=== PATIENT | male | born 1940 | race African-American/Black ===

== ENCOUNTER 2017-02-03 10:59 | Outpatient (CLI) | payer MEDICARE ==
[2017-02-03 11:54] LABS: ALT (SGPT) 9 U/L (0-55); AST (SGOT) 12 U/L (5-34); Alkaline Phosphatase 68 U/L (40-150); Anion Gap 12 mmol/L (10-20); BUN (Urea Nitrogen) 12 mg/dL (8.4-25.7); Bilirubin, Total 0.3 mg/dL (0.2-1.2); Calc. Creatinine Clearance 0 mL/min (70-130); Calcium 9.5 mg/dL (7.8-10.44); Carbon Dioxide 27 mmol/L (23-31); Cardiac Risk 2.2 (Less than 4.5); Chloride 107 mmol/L (98-107); Cholesterol 94 mg/dL (< 200 Desired); Estimated GFR-MDRD 74; Globulin 2.4 g/dL (2.4-3.5); Glucose 100 mg/dL (83-110); HDL Cholesterol 42 mg/dL (>60 Neg Risk); LDL Cholesterol, Calculated 40 mg/dL; Protein, Total 6.4 g/dL (5.8-8.1); Sodium 142 mmol/L (136-145); Triglycerides 60 mg/dL (Less than 150)
[2017-02-03 12:17] LABS: Free T4 (Free Thyroxine) 1.18 ng/dL (0.70-1.48); PSA-Asymptomatic (SCREENING) 0.02 ng/mL (0-4.0); Thyroid Stimulating Hormone 0.6253 uIU/mL (0.35-4.94)
[2017-02-03 12:26] LABS: #Basophils 0.1 thou/uL (0.0-0.2); #Eosinphils 0.5 thou/uL (0.0-0.7); #Monocytes 0.5 thou/uL (0.11-0.59); #Neutrophils 3.6 thou/uL (1.40-6.50); %Basophils 1.1 % (0.0-1.0); %Eosinophils 7.5 % (0.0-10.0); %Lymphocytes 29.4 % (21.0-51.0); %Monocytes 7.6 % (0.0-10.0); %Neutrophils 54.5 % (42.0-75.0); Hemoglobin 12.7 g/dL (14.0-18.0); Mean Corpuscular HGB CONC 34.2 g/dL (32.0-36.0); Mean Corpuscular Hemoglobin 30.1 pg (27.0-31.0); Mean Corpuscular Volume 87.9 fl (80.0-94.0); Mean Platelet Volume 7.4 fL (7.4-10.4); Platelet Count 246 thou/uL (130-400); RBC Distribution Width 12.7 % (11.5-14.5); Red Blood Cell (RBC) Count 4.23 mill/uL (4.70-6.10); White Blood Cell (WBC) Count 6.7 thou/uL (4.8-10.8)
[2017-02-03 12:38] LABS: Hemoglobin A1c 6.9 % (4.0-6.0)
[2017-02-03 17:17] LABS: Iron 51 ug/dL (65-175)
== END 2017-02-03 11:00 | disposition home or self-care (01) ==
LOC: BURLAB 10:59
PROVIDERS: ATTEND Internal Medicine
DX: Z12.5 Encounter for screening for malignant neoplasm of prostate (principal); E78.5 Hyperlipidemia, unspecified; E11.9 Type 2 diabetes mellitus without complications; I10 Essential (primary) hypertension
CPT/HCPCS: 36415; 80053; 80061; 83036; 83540; 84439; 84443; 85025; G0103

== ENCOUNTER 2017-05-16 09:30 | Outpatient (CLI) | payer MEDICARE ==
[2017-05-16 10:19] LABS: #Basophils 0.1 thou/uL (0.0-0.2); #Eosinphils 0.1 thou/uL (0.0-0.7); #Lymphocytes 1.7 thou/uL (1.20-3.40); #Monocytes 0.6 thou/uL (0.11-0.59); #Neutrophils 4.1 thou/uL (1.40-6.50); %Basophils 1.2 % (0.0-1.0); %Eosinophils 1.9 % (0.0-10.0); %Lymphocytes 25.3 % (21.0-51.0); %Neutrophils 62.5 % (42.0-75.0); Hemoglobin 13.2 g/dL (14.0-18.0); Mean Corpuscular HGB CONC 33.8 g/dL (32.0-36.0); Mean Corpuscular Hemoglobin 29.2 pg (27.0-31.0); Mean Corpuscular Volume 86.4 fl (80.0-94.0); Mean Platelet Volume 7.5 fL (7.4-10.4); Platelet Count 174 thou/uL (130-400); RBC Distribution Width 13.6 % (11.5-14.5); Red Blood Cell (RBC) Count 4.53 mill/uL (4.70-6.10); White Blood Cell (WBC) Count 6.6 thou/uL (4.8-10.8)
[2017-05-16 10:22] LABS: ALT (SGPT) 13 U/L (8-55); AST (SGOT) 14 U/L (5-34); Albumin 3.9 g/dL (3.4-4.8); Alkaline Phosphatase 63 U/L (40-150); Anion Gap 12 mmol/L (10-20); BUN (Urea Nitrogen) 22 mg/dL (8.4-25.7); Bilirubin, Total 0.3 mg/dL (0.2-1.2); Calc. Creatinine Clearance 0 mL/min (70-130); Calcium 9.6 mg/dL (7.8-10.44); Carbon Dioxide 27 mmol/L (23-31); Cardiac Risk 2.8 (Less than 4.5); Chloride 107 mmol/L (98-107); Cholesterol 112 mg/dl (< 200 Desired); Estimated GFR-MDRD 71; Globulin 2.8 g/dL (2.4-3.5); Glucose 90 mg/dL (83-110); HDL Cholesterol 40 mg/dL (>60 Neg Risk); LDL Cholesterol, Calculated 52 mg/dL; Potassium 4.1 mmol/L (3.5-5.1); Protein, Total 6.7 g/dL (5.8-8.1); Sodium 142 mmol/L (136-145); Triglycerides 100 mg/dL (Less than 150)
[2017-05-16 10:43] LABS: Hemoglobin A1c 6.9 % (4.0-6.0)
[2017-05-16 18:02] LABS: Iron 53 ug/dL (65-175)
== END 2017-05-16 09:31 | disposition home or self-care (01) ==
LOC: BURLAB 09:30
PROVIDERS: ATTEND Internal Medicine
DX: E78.5 Hyperlipidemia, unspecified (principal); E11.9 Type 2 diabetes mellitus without complications
CPT/HCPCS: 36415; 80053; 80061; 82728; 83036; 83540; 85025

== ENCOUNTER 2018-02-06 15:53 | Emergency (ER) | payer MEDICARE ==
[2018-02-06] MEDS ORDERED: AMOXicillin 250 MG CAP ONE (16:19)
--- NOTE | 2018-02-06 20:44 | RAD ---
PORTABLE CHEST: 02/06/18 An AP portable film at 1550 shows the heart to be upper limits of normal in size. There are no conges tive changes or pleural effusions. There is no sign of pneumonia currently. The lungs are clear. The mediastinum showed no acute change. Slight deviation of the trachea to the right appears to be due to the mildly dilated aortic arch. IMPRESSION: Borderline heart size but no acute findings. POS: HOME
== END 2018-02-06 16:25 | disposition home or self-care (01) ==
LOC: BURERS 15:53
DX: J20.9 Acute bronchitis, unspecified (principal); I10 Essential (primary) hypertension; F17.210 Nicotine dependence, cigarettes, uncomplicated; Z79.899 Other long term (current) drug therapy; Z79.4 Long term (current) use of insulin
CPT/HCPCS: 71045

== ENCOUNTER 2018-11-16 11:43 | Emergency (ER) | payer MEDICARE ==
[2018-11-16 12:31] LABS: #Basophils 0.1 thou/uL (0.0-0.2); #Eosinphils 0.2 thou/uL (0.0-0.7); #Lymphocytes 1.5 thou/uL (1.20-3.40); #Monocytes 0.7 thou/uL (0.11-0.59); #Neutrophils 4.1 thou/uL (1.40-6.50); %Basophils 1.5 % (0.0-1.0); %Eosinophils 2.5 % (0.0-10.0); %Lymphocytes 22.4 % (21.0-51.0); %Monocytes 10.1 % (0.0-10.0); %Neutrophils 63.5 % (42.0-75.0); Mean Corpuscular Volume 85.3 fL (78.0-98.0); Platelet Count 150 thou/uL (130-400); Red Blood Cell (RBC) Count 4.15 mill/uL (4.70-6.10); White Blood Cell (WBC) Count 6.5 thou/uL (4.8-10.8)
[2018-11-16 12:38] LABS: ALT (SGPT) 15 U/L (8-55); AST (SGOT) 16 U/L (5-34); Albumin 3.8 g/dL (3.4-4.8); Alkaline Phosphatase 55 U/L (40-150); Anion Gap 13 mmol/L (10-20); BUN (Urea Nitrogen) 44 mg/dL (8.4-25.7); Bilirubin, Total 0.4 mg/dL (0.2-1.2); Calc. Creatinine Clearance 0 mL/min (70-130); Calcium 9.9 mg/dL (7.8-10.44); Carbon Dioxide 27 mmol/L (23-31); Chloride 104 mmol/L (98-107); Estimated GFR-MDRD 33; Globulin 2.7 g/dL (2.4-3.5); Glucose 96 mg/dL (83-110); Potassium 4.3 mmol/L (3.5-5.1); Protein, Total 6.5 g/dL (5.8-8.1); Sodium 140 mmol/L (136-145)
[2018-11-16 13:38] LABS: Bilirubin Negative (Negative); Clarity Clear (Clear); Glucose, Urine (Dipstick) Negative (Negative); Leukocyte Negative (Negative); Nitrite Negative (Negative); Protein, Urine (Dipstick) 30 mg/dL (Neg-Trace); Specific Gravity, Urine 1.015 (1.005-1.030); Urobilinogen 0.2 mg/dL (0.2-1.0)
[2018-11-16 13:39] LABS: Bacteria/HPF Rare-Few HPF (None Seen); Blood, Urine Negative (Negative); Crystals/HPF None Seen HPF (Negative); Hyaline Casts/LPF NONE SEEN LPF (0-3 Hyaline); Oval Fat Bodies/HPF None Seen HPF (None Seen); RBC/HPF 0-3 HPF (0-3); Renal Epithelial None Seen HPF (0-3); Sperm/HPF None Seen HPF (None Seen); Squamous Epithelial None Seen HPF (0-3); Transitional Epithelial NONE SEEN HPF (0-3); Trichomonas/HPF None Seen HPF (None Seen); WBC/HPF 0-3 HPF (0-3); Yeast-All Forms None Seen HPF (None Seen)
[2018-11-16 13:40] LABS: Other Casts/LPF 0-3 WBC CASTS LPF (0-3 Hyaline)
--- NOTE | 2018-11-16 14:00 | RAD ---
LEFT FOOT THREE VIEWS: Date: 11-16-18 FINDINGS: No fracture or periosteal reaction was seen. There may have been old trauma to the proximal phalanx o f the fifth digit. No calcaneal spur was noted. Some arterial calcifications are present. The joints were unremarkable for age. IMPRESSION: No acute bony finding. POS: [facility]
[2018-11-16] MEDS ORDERED: Furosemide 40 MG/4 ML VIAL ONE (14:32)
[2018-11-16 19:11] LABS: Creatinine, Urine 73.29 mg/dL (63-166)
== END 2018-11-16 15:07 | disposition short-term general hospital (02) ==
LOC: BURERS 11:43
DX: N17.9 Acute kidney failure, unspecified (principal); I10 Essential (primary) hypertension; F17.210 Nicotine dependence, cigarettes, uncomplicated; Z79.899 Other long term (current) drug therapy; Z79.4 Long term (current) use of insulin; Z79.82 Long term (current) use of aspirin
CPT/HCPCS: 80053; 81003; 81015; 82570; 83880; 84300; 84484; 85025; 93005; 96374; J1940

== ENCOUNTER 2019-09-30 10:03 | Emergency (ER) | payer MEDICARE ==
--- NOTE | 2019-09-30 14:35 | RAD ---
CHEST 2 VIEWS: DATE: 09/30/2019. FINDINGS: Comparison is made with the 02/06/2018 study. Mild cardiomegaly is about the same. There is no vascul ar congestion, edema, or pleural effusion. The lungs are mildly hyperexpanded but clear. There was no sign of pneumonia. IMPRESSION: Mild cardiomegaly but no acute finding. POS: HOME
== END 2019-09-30 11:46 | disposition home or self-care (01) ==
LOC: BURERS 10:03
DX: J01.90 Acute sinusitis, unspecified (principal); B96.89 Other specified bacterial agents as the cause of diseases classified elsewhere; I10 Essential (primary) hypertension; E11.9 Type 2 diabetes mellitus without complications; F17.210 Nicotine dependence, cigarettes, uncomplicated; Z79.02 Long term (current) use of antithrombotics/antiplatelets; Z79.4 Long term (current) use of insulin; Z79.899 Other long term (current) drug therapy
CPT/HCPCS: 71046